=== PATIENT | male | born 1970 | race Caucasian/White ===

== ENCOUNTER 2018-12-30 04:27 | Emergency (ER) | payer OTHER ==
[~2018-12-30] VITALS: Ht 167.6 cm; Wt 106.8 kg
[2018-12-30 04:30] VITALS: BP 132/90; PULSE 89; RESP 16; Ht 167.6 cm; Wt 106.8 kg
[2018-12-30] MEDS ORDERED: IBUPROFEN 600 MG TAB PO ONE (05:30)
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
[2018-12-30] MEDS ORDERED: IBUP-1542 PO (07:14)
== END 2018-12-30 07:24 ==
LOC: E/R 04:27
DX: S80.01XA Contusion of right knee, initial encounter (principal); S20.212A Contusion of left front wall of thorax, initial encounter; V47.5XXA Car driver injured in collision with fixed or stationary object in traffic accident, initial encounter; Z87.891 Personal history of nicotine dependence
CPT/HCPCS: 71046; 72170